=== PATIENT | male | born 1960 | race Two or more races ===

== ENCOUNTER 2021-06-02 13:27 | Emergency (ER) | payer BC, OTHER ==
[~2021-06-02] VITALS: Ht 157.5 cm; Wt 72.6 kg
--- NOTE | 2021-06-02 13:27 | NUR ---
PT BIB SELF C/O EPIGASTRIC PAIN/NAUSEA/VOMITING X 3 DAYS. PT IS AAOX3 [place] SPEAKING ONLY, NOT IN RESPIRATORY DISTRESS, V/S STABLE, KEPT RESTED AND COMFORTABLE. WILL CONTINUE TO MONITOR.
--- NOTE | 2021-06-02 13:42 | NUR ---
AT BEDSIDE FOR EVAL.
[2021-06-02] MEDS ORDERED: ONDANSETRON HCL/PF 4 MG/2 ML VIAL IVP ONE ×3 (14:00→16:30)
[2021-06-02] MEDS ORDERED: IV NS 0.9% 1,000 ML BAG IV ONE ×2 (14:00→14:30)
--- NOTE | 2021-06-02 14:00 | NUR ---
IV LINE ESTALBISHED BLOOD DRAWN AND SENT TO LAB.
[2021-06-02] MEDS ORDERED: ONDANSETRON HCL/PF 4 MG/2 ML VIAL ONE ×2 (14:07→16:16)
[2021-06-02 14:15] LABS: BASOPHILS % (AUTO) 0.6 % (0.0-2.0); EOSINOPHILS % (AUTO) 1.5 % (0.0-6.0); HEMATOCRIT 41 % (39-51); HEMOGLOBIN 13.9 g/dL (13.5-17.5); LYMPHOCYTES # (AUTO) 1.7 K/uL (0.8-4.8); LYMPHOCYTES % (AUTO) 25.5 % (20.0-44.0); MEAN CORPUSCULAR HGB CONC 34 g/dl (31.0-36.0); MEAN CORPUSCULAR VOLUME 95 fL (80-96); MONOCYTES # (AUTO) 0.5 K/uL (0.1-1.30); MONOCYTES % (AUTO) 7.8 % (2.0-12.0); NEUTROPHILS # (AUTO) 4.4 K/uL (1.8-8.9); NEUTROPHILS % (AUTO) 64.6 % (43.0-81.0); PLATELET COUNT (AUTO) 228 K/uL (150-450); RED BLOOD CELL COUNT(AUTO) 4.28 MIL/uL (4.5-6.0); WHITE BLOOD COUNT (AUTO) 6.8 K/uL (4.3-11.0)
[2021-06-02 16:05] LABS: ALBUMIN 3.3 g/dL (3.4-5.0); BILIRUBIN,DIRECT 0.1 mg/dL (0.0-0.2); BILIRUBIN,TOTAL 0.2 mg/dL (0.2-1.0); CALCIUM, SERUM 7.4 mg/dL (8.5-10.1); CREATININE 0.9 mg/dL (0.6-1.3); POTASSIUM 4.5 mmol/L (3.5-5.1); TOTAL PROTEIN, SERUM 6.5 g/dL (6.4-8.2)
[2021-06-02] MEDS ORDERED: FAMOTIDINE/PF INJ 20 MG/2 ML VIAL IV ONE ×2 (16:16→16:30)
[2021-06-02] MEDS ORDERED: MAG HYDROX/AL HYDROX/SIMETH 30 ML UDC PO ONE (16:30)
[2021-06-02] MEDS ORDERED: OMEP40CA21 PO (16:35)
[2021-06-02] MEDS ORDERED: ONDA4TAB5 PO (16:35)
[2021-06-02] MEDS ORDERED: LORA-259 PO (16:35)
[2021-06-02] MEDS ORDERED: MAG HYDROX/AL HYDROX/SIMETH 30 ML UDC ONE (16:40)
[2021-06-02 16:50] VITALS: BP 129/71
--- NOTE | 2021-06-02 16:50 | NUR ---
IV removed. Catheter intact and site benign. Pressure and 4x4 applied to site. No bleeding noted. Patient discharged to home in stable condition. Written and verbal after care instructions given. Patient verbalizes understanding of instruction.
== END 2021-06-02 16:51 | disposition home or self-care (01) ==
LOC: ER 13:28
DX: K29.70 Gastritis, unspecified, without bleeding (principal); I10 Essential (primary) hypertension; E11.9 Type 2 diabetes mellitus without complications; Z79.899 Other long term (current) drug therapy
CPT/HCPCS: 36415; 80048; 80076; 83690; 85025; 96361; 96374; 96375; 96376; 99284; J2405 ×2; J3490; J7030

== ENCOUNTER 2021-07-02 13:13 | Emergency (ER) | payer BC, OTHER ==
[~2021-07-02] VITALS: Ht 154.9 cm; Wt 72.6 kg
[~2021-07-02 13:13] MED LIST: LORA-259 PO; OMEP40CA21 PO; ONDA4TAB5 PO
--- NOTE | 2021-07-02 13:13 | NUR ---
PT ON MONITOR. VITALS ARE STABLE
--- NOTE | 2021-07-02 13:13 | NUR ---
BIB SELF C/O EPIGASTRIC PAIN X 1 WEEK. ADMITS N/V, HEADACHE, CONSTIPATION FOR 2 DAYS. A&OX4. AMBULATORY. BREATHING EVEN AND UNLABORED. PULSES 2+ BILATERALLY. ABDOMINAL DISTENTION. LAST BM TODAY. SKIN IS WARM AND DRY.
--- NOTE | 2021-07-02 13:54 | NUR ---
INSURANCE PROCESSING CLERK AD BEDSIDE
[2021-07-02] MEDS ORDERED: FAMOTIDINE/PF INJ 20 MG/2 ML VIAL IV ONE ×2 (14:00→14:13)
[2021-07-02] MEDS ORDERED: IV NS 0.9% 1,000 ML BAG IV ONE ×3 (14:00→21:30)
[2021-07-02] MEDS ORDERED: ONDANSETRON HCL/PF 4 MG/2 ML VIAL IVP ONE (14:00)
--- NOTE | 2021-07-02 14:05 | NUR ---
URINE SAMPLE OBTAINED AND SENT TO LAB
[2021-07-02] MEDS ORDERED: ONDANSETRON HCL/PF 4 MG/2 ML VIAL ONE ×2 (14:13→19:34)
[2021-07-02 14:19] LABS: BASOPHILS % (AUTO) 0.3 % (0.0-2.0); EOSINOPHILS % (AUTO) 1.9 % (0.0-6.0); HEMATOCRIT 38 % (39-51); HEMOGLOBIN 12.9 g/dL (13.5-17.5); LYMPHOCYTES # (AUTO) 1.8 K/uL (0.8-4.8); MEAN CORPUSCULAR HGB CONC 34 g/dl (31.0-36.0); MEAN CORPUSCULAR VOLUME 94 fL (80-96); MONOCYTES # (AUTO) 0.5 K/uL (0.1-1.30); MONOCYTES % (AUTO) 6.5 % (2.0-12.0); NEUTROPHILS # (AUTO) 4.6 K/uL (1.8-8.9); NEUTROPHILS % (AUTO) 65.3 % (43.0-81.0); PLATELET COUNT (AUTO) 216 K/uL (150-450); RED BLOOD CELL COUNT(AUTO) 3.99 MIL/uL (4.5-6.0); WHITE BLOOD COUNT (AUTO) 7.1 K/uL (4.3-11.0)
--- NOTE | 2021-07-02 14:42 | NUR ---
Fluids are running. pt tolerating well
[2021-07-02 14:52] LABS: ALANINE AMINOTRANSFERASE 22 U/L (12-78); ALBUMIN 3.6 g/dL (3.4-5.0); ALKALINE PHOSPHATASE 54 U/L (46-116); ASPARTATE AMINOTRANSFERASE 11 U/L (15-37); BILIRUBIN,DIRECT 0.1 mg/dL (0.0-0.2); BILIRUBIN,TOTAL 0.2 mg/dL (0.2-1.0); CALCIUM, SERUM 8.1 mg/dL (8.5-10.1); CARBON DIOXIDE 20 mmol/L (21-32); CHLORIDE 100 mmol/L (98-107); GLUCOSE 322 mg/dL (74-106); LIPASE 195 U/L (73-393); POTASSIUM 4.4 mmol/L (3.5-5.1); SODIUM SERUM 133 mmol/L (136-145); TOTAL PROTEIN, SERUM 7.1 g/dL (6.4-8.2); UREA NITROGEN, BLOOD 12 mg/dL (7-18)
--- NOTE | 2021-07-02 16:32 | NUR ---
piv r ac,20g,dislodged, catheter intact,pressure dressing applied
[2021-07-02 17:29] LABS: BILIRUBIN,URINE NEGATIVE (NEGATIVE); COLOR,URINE YELLOW (YELLOW); LEUKOCYTE ESTERASE ,URINE NEGATIVE (NEGATIVE); NITRITE, URINE NEGATIVE (NEGATIVE); PROTEIN,URINE NEGATIVE (NEGATIVE); UGLUCOSE 100 MG/DL mg/dL (NEGATIVE); UROBILINOGEN,URINE 0.2 EU/dL (0.2)
[2021-07-02 18:59] LABS: CALCIUM, SERUM 8.4 mg/dL (8.5-10.1); CREATININE 0.8 mg/dL (0.6-1.3); POTASSIUM 4.4 mmol/L (3.5-5.1)
[2021-07-02] MEDS ORDERED: ONDANSETRON HCL/PF 4 MG/2 ML VIAL IV ONE (19:30)
[2021-07-02] MEDS ORDERED: IV NS 0.9% 250 ML IV ONE (19:40)
[2021-07-02] MEDS ORDERED: IOHEXOL-300 100 ML VIAL IV ONE (19:40)
--- NOTE | 2021-07-02 19:45 | NUR ---
taken to radiology
--- NOTE | 2021-07-02 19:52 | NUR ---
LACTIC ACID 2.6
--- NOTE | 2021-07-02 21:05 | NUR ---
LACTIC 2.2 PER LAB
[2021-07-02] MEDS ORDERED: IV LR 1000 ML 1,000 ML IV ONE (22:00)
[2021-07-02 22:32] LABS: CALCIUM, SERUM 8.5 mg/dL (8.5-10.1); POTASSIUM 5.1 mmol/L (3.5-5.1)
[2021-07-02] MEDS ORDERED: ONDA4TAB5 PO (22:50)
--- NOTE | 2021-07-02 22:54 | NUR ---
Patient discharged to home in stable condition. Written and verbal after care instructions given. Patient verbalizes understanding of instruction. IV removed. Catheter intact and site benign. Pressure and 4x4 applied to site. No bleeding noted. Pt ambulatory with a steady gait
[2021-07-02 23:04] VITALS: BP 118/70
== END 2021-07-02 22:49 | disposition home or self-care (01) ==
LOC: ER 13:19
DX: E86.0 Dehydration (principal); R11.2 Nausea with vomiting, unspecified; E11.65 Type 2 diabetes mellitus with hyperglycemia; E87.2 Acidosis; Z20.822 Contact with and (suspected) exposure to COVID-19; Z79.84 Long term (current) use of oral hypoglycemic drugs; I10 Essential (primary) hypertension; E78.5 Hyperlipidemia, unspecified; Z87.19 Personal history of other diseases of the digestive system
CPT/HCPCS: 36415; 70450; 71045; 74177; 80048 ×3; 80076; 81003; 82803; 82962; 83605 ×2; 83690; 84484 ×2; 85025; 87081; 87426; 93005; 96361; 96374; 96375; 96376; 99285; C9803; J2405 ×2; J3490; J7030 ×3; J7050; J7120 ×2; Q9967; J7040

== ENCOUNTER 2021-12-24 12:48 | Emergency (ER) | payer BC, OTHER ==
[~2021-12-24] VITALS: Ht 162.6 cm; Wt 81.2 kg
[2021-12-24] MEDS ORDERED: LIDOCAINE VISCOUS 2% UD 15 ML UDC MM ONE (13:00)
[2021-12-24] MEDS ORDERED: IV NS 0.9% 1,000 ML IV ONE (13:00)
[2021-12-24] MEDS ORDERED: ONDANSETRON HCL/PF - ER 4 MG/2 ML VIAL IV ONE (13:00)
[2021-12-24] MEDS ORDERED: MAG HYDROX/AL HYDROX/SIMETH 30 ML UDC PO ONE (13:00)
[2021-12-24] MEDS ORDERED: ONDANSETRON HCL/PF 4 MG/2 ML VIAL ONE (13:06)
[2021-12-24] MEDS ORDERED: LIDOCAINE VISCOUS 2% UD 15 ML UDC ONE (13:06)
[2021-12-24] MEDS ORDERED: MAG HYDROX/AL HYDROX/SIMETH 30 ML UDC ONE (13:06)
[2021-12-24 13:30] LABS: BASOPHILS % (AUTO) 0.6 % (0.0-2.0); EOSINOPHILS % (AUTO) 1.9 % (0.0-6.0); HEMATOCRIT 40 % (39-51); HEMOGLOBIN 13.8 g/dL (13.5-17.5); LYMPHOCYTES # (AUTO) 1.6 K/uL (0.8-4.8); LYMPHOCYTES % (AUTO) 24.2 % (20.0-44.0); MEAN CORPUSCULAR HGB CONC 35 g/dl (31.0-36.0); MEAN CORPUSCULAR VOLUME 93 fL (80-96); MONOCYTES # (AUTO) 0.5 K/uL (0.1-1.30); MONOCYTES % (AUTO) 7.6 % (2.0-12.0); NEUTROPHILS # (AUTO) 4.3 K/uL (1.8-8.9); NEUTROPHILS % (AUTO) 65.7 % (43.0-81.0); PLATELET COUNT (AUTO) 210 K/uL (150-450); RED BLOOD CELL COUNT(AUTO) 4.28 MIL/uL (4.5-6.0); WHITE BLOOD COUNT (AUTO) 6.5 K/uL (4.3-11.0)
[2021-12-24 13:38] LABS: CALCIUM, SERUM 8.3 mg/dL (8.5-10.1); CREATININE 1.1 mg/dL (0.6-1.3); POTASSIUM 4.9 mmol/L (3.5-5.1)
[2021-12-24 13:44] LABS: ALBUMIN 3.8 g/dL (3.4-5.0); BILIRUBIN,DIRECT 0.1 mg/dL (0.0-0.2); BILIRUBIN,TOTAL 0.3 mg/dL (0.2-1.0); TOTAL PROTEIN, SERUM 7.5 g/dL (6.4-8.2)
[2021-12-24] MEDS ORDERED: PANT20TA2 PO (13:52)
[2021-12-24] MEDS ORDERED: ONDA4TAB11 PO (13:52)
[2021-12-24 14:41] VITALS: BP 140/79
== END 2021-12-24 14:42 | disposition home or self-care (01) ==
LOC: ER 12:55
DX: K29.70 Gastritis, unspecified, without bleeding (principal); I10 Essential (primary) hypertension; E11.9 Type 2 diabetes mellitus without complications; Z87.19 Personal history of other diseases of the digestive system; Z85.46 Personal history of malignant neoplasm of prostate; Z79.899 Other long term (current) drug therapy
CPT/HCPCS: 36415; 80048; 80076; 83690; 85025; 96361; 96374; 99283; J2405; J7030

== ENCOUNTER 2024-09-07 10:16 | Emergency (ER) | payer BC, MEDICAID ==
[~2024-09-07] VITALS: Ht 160 cm; Wt 72.6 kg
[~2024-09-07 10:16] MED LIST changes: +ONDA4TAB11 PO; +PANT20TA2 PO
[2024-09-07 11:04] LABS: BASOPHILS % (AUTO) 0.5 % (0.0-2.0); EOSINOPHILS % (AUTO) 0.1 % (0.0-6.0); HEMATOCRIT 42 % (39-51); HEMOGLOBIN 14.2 g/dL (13.5-17.5); LYMPHOCYTES # (AUTO) 0.4 K/uL (0.8-4.8); LYMPHOCYTES % (AUTO) 7.2 % (20.0-44.0); MEAN CORPUSCULAR HEMOGLOBIN 34 PG (26.0-33.0); MEAN CORPUSCULAR HGB CONC 34 g/dl (31.0-36.0); MEAN CORPUSCULAR VOLUME 98 fL (80-96); MONOCYTES # (AUTO) 0.7 K/uL (0.1-1.30); MONOCYTES % (AUTO) 13.9 % (2.0-12.0); NEUTROPHILS # (AUTO) 4.1 K/uL (1.8-8.9); NEUTROPHILS % (AUTO) 78.3 % (43.0-81.0); PLATELET COUNT (AUTO) 181 K/uL (150-450); RED BLOOD CELL COUNT(AUTO) 4.24 MIL/uL (4.5-6.0); RED CELL DISTRIBUTION WIDTH 13.2 % (11.5-15.0); WHITE BLOOD COUNT (AUTO) 5.2 K/uL (4.3-11.0)
[2024-09-07 11:41] LABS: CALCIUM, SERUM 8.4 mg/dL (8.5-10.1); CREATININE 1.2 mg/dL (0.6-1.3); POTASSIUM 4.1 mmol/L (3.5-5.1)
[2024-09-07] MEDS: IV NS 0.9% 1,000 ML BAG IV ONE (11:55)
[2024-09-07] MEDS ORDERED: ONDANSETRON HCL/PF 4 MG/2 ML VIAL ONE (12:07)
[2024-09-07] MEDS: ONDANSETRON HCL/PF 4 MG/2 ML VIAL IV ONE (12:26)
[2024-09-07] MEDS ORDERED: INSULIN REGULAR, HUMAN 100 UNIT/ML 10 ML VIAL ONE (12:27)
[2024-09-07] MEDS: INSULIN REGULAR, HUMAN 100 UNIT/ML 10 ML VIAL IV ONE (12:34)
[2024-09-07] MEDS ORDERED: SUCRALFATE 1 G/10 ML UDC ONE (13:56)
[2024-09-07] MEDS ORDERED: PANTOPRAZOLE 40 MG VIAL ONE (13:56)
[2024-09-07] MEDS ORDERED: FAMOTIDINE/PF INJ 20 MG/2 ML VIAL IV ONE ×2 (13:57→14:00)
[2024-09-07] MEDS ORDERED: PANTOPRAZOLE 40 MG VIAL IV ONE (14:00)
[2024-09-07] MEDS ORDERED: SUCRALFATE 1 G/10 ML UDC PO ONE (14:00)
[2024-09-07 14:24] LABS: VBG BASE EXCESS -3.2 mmol/L (-2.0-3.0); VBG COHb 2.1 % (0.5-1.5); VBG HCO3 19.9 mmol/L (22.0-29.0); VBG MetHb 0.2 % (0.5-1.5); VBG O2Hb 91.8 % (0-79); VBG PH 7.425 (7.320-7.430); VBG PO2 71.7 mmHg (23.0-48.0)
[2024-09-07] MEDS ORDERED: SUCR1ORA6 PO (14:51)
[2024-09-07] MEDS ORDERED: PANT40TA49 PO (14:51)
[2024-09-07] MEDS ORDERED: FAMO20TA80 PO (14:51)
[2024-09-07 15:13] VITALS: BP 138/78; TEMP 97.9; O2SAT 98
== END 2024-09-07 15:14 | disposition home or self-care (01) ==
LOC: ER 10:25
DX: K52.9 Noninfective gastroenteritis and colitis, unspecified (principal); R11.2 Nausea with vomiting, unspecified; I10 Essential (primary) hypertension; E11.9 Type 2 diabetes mellitus without complications; E78.5 Hyperlipidemia, unspecified; Z87.19 Personal history of other diseases of the digestive system; Z79.899 Other long term (current) drug therapy
CPT/HCPCS: 99285; 96374; 71045; 96361; 96375; 93005; 82803; 84145; 85025; 80048; 87040 ×2; 82010; 36415; 84484; 82962 ×2; J1815; J3490; J2405; J7030; J2470

== ENCOUNTER 2025-01-13 13:34 | Emergency (ER) | payer BC, MEDICAID ==
[~2025-01-13] VITALS: Ht 160 cm; Wt 72.6 kg
[~2025-01-13 13:34] MED LIST changes: +FAMO20TA80 PO; +PANT40TA49 PO; +SUCR1ORA6 PO
[2025-01-13] MEDS ORDERED: ONDANSETRON HCL/PF 4 MG/2 ML VIAL ONE (14:46)
[2025-01-13] MEDS ORDERED: diphenhydrAMINE HCL 50 MG/ML VIAL ONE (14:46)
[2025-01-13 14:51] LABS: BASOPHILS % (AUTO) 0.4 % (0.0-2.0); EOSINOPHILS # (AUTO) 0.2 K/uL (0.0-0.7); EOSINOPHILS % (AUTO) 4.3 % (0.0-6.0); HEMATOCRIT 37 % (39-51); HEMOGLOBIN 13.1 g/dL (13.5-17.5); LYMPHOCYTES # (AUTO) 1.3 K/uL (0.8-4.8); LYMPHOCYTES % (AUTO) 22.3 % (20.0-44.0); MEAN CORPUSCULAR HEMOGLOBIN 34 PG (26.0-33.0); MEAN CORPUSCULAR HGB CONC 35 g/dl (31.0-36.0); MEAN CORPUSCULAR VOLUME 97 fL (80-96); MONOCYTES # (AUTO) 0.5 K/uL (0.1-1.30); MONOCYTES % (AUTO) 8.6 % (2.0-12.0); NEUTROPHILS # (AUTO) 3.7 K/uL (1.8-8.9); NEUTROPHILS % (AUTO) 64.4 % (43.0-81.0); PLATELET COUNT (AUTO) 222 K/uL (150-450); RED BLOOD CELL COUNT(AUTO) 3.86 MIL/uL (4.5-6.0); RED CELL DISTRIBUTION WIDTH 13.8 % (11.5-15.0); WHITE BLOOD COUNT (AUTO) 5.8 K/uL (4.3-11.0)
[2025-01-13] MEDS: ONDANSETRON HCL/PF 4 MG/2 ML VIAL IVP ONE (14:53)
[2025-01-13] MEDS: diphenhydrAMINE HCL 50 MG/ML VIAL IV ONE (14:53)
[2025-01-13] MEDS: IV NS 0.9% 1,000 ML BAG IV ONE (14:53)
[2025-01-13 15:09] LABS: CALCIUM, SERUM 8.8 mg/dL (8.5-10.1); CREATININE 1.1 mg/dL (0.6-1.3); POTASSIUM 4.4 mmol/L (3.5-5.1)
[2025-01-13 15:25] LABS: ALBUMIN 3.5 g/dL (3.4-5.0); BILIRUBIN,DIRECT 0.1 mg/dL (0.0-0.2); BILIRUBIN,TOTAL 0.3 mg/dL (0.2-1.0); TOTAL PROTEIN, SERUM 7.4 g/dL (6.4-8.2)
[2025-01-13 15:33] LABS: INR 0.93 (0.91-1.10); PARTIAL THROMBOPLASTIN TIME 24.6 SEC (24.3-34.3); PROTHROMBIN TIME 9.9 SECS (9.2-11.1)
[2025-01-13 16:12] LABS: ERYTHROCYTE SEDIMENTATION RATE 12 MM/HR (0-20)
[2025-01-13] MEDS ORDERED: MECL-159 PO (16:27)
[2025-01-13 16:41] VITALS: BP 132/70; TEMP 98; O2SAT 98
== END 2025-01-13 16:41 | disposition home or self-care (01) ==
LOC: ER 13:38
DX: R42 Dizziness and giddiness (principal); I10 Essential (primary) hypertension; E11.9 Type 2 diabetes mellitus without complications; Z79.899 Other long term (current) drug therapy; Z87.19 Personal history of other diseases of the digestive system; Z86.2 Personal history of diseases of the blood and blood-forming organs and certain disorders involving the immune mechanism
CPT/HCPCS: 99285; 96374; 70450; 71045; 96361; 96375; 93005; 85025; 80048; 80076; 85652; 36415; 85730; J1200; J2405

== ENCOUNTER 2025-04-05 12:12 | Emergency (ER) | payer BC, MEDICAID ==
[~2025-04-05] VITALS: Ht 157.5 cm; Wt 72.6 kg
[~2025-04-05 12:12] MED LIST changes: +MECL-159 PO
[2025-04-05] MEDS ORDERED: ONDANSETRON HCL/PF 4 MG/2 ML VIAL ONE (12:36)
[2025-04-05] MEDS ORDERED: FAMOTIDINE/PF INJ 20 MG/2 ML VIAL IV ONE (12:37)
[2025-04-05] MEDS: IV NS 0.9% 1,000 ML BAG IV ONE (12:45)
[2025-04-05] MEDS: FAMOTIDINE/PF INJ 20 MG/2 ML VIAL IV ONE (12:50)
[2025-04-05] MEDS: ONDANSETRON HCL/PF 4 MG/2 ML VIAL IVP ONE (12:54)
[2025-04-05 12:55] LABS: PLATELET COUNT (AUTO) 236 K/uL (150-450); RED BLOOD CELL COUNT(AUTO) 4.26 MIL/uL (4.5-6.0); RED CELL DISTRIBUTION WIDTH 13.4 % (11.5-15.0); WHITE BLOOD COUNT (AUTO) 5.9 K/uL (4.3-11.0)
[2025-04-05 13:05] LABS: CALCIUM, SERUM 8.8 mg/dL (8.5-10.1); CREATININE 1.0 mg/dL (0.6-1.3); SODIUM SERUM 132 mmol/L (136-145); UREA NITROGEN, BLOOD 16 mg/dL (7-18)
[2025-04-05 13:11] LABS: ASPARTATE AMINOTRANSFERASE 11 U/L (15-37); TOTAL PROTEIN, SERUM 7.7 g/dL (6.4-8.2)
[2025-04-05] MEDS ORDERED: IOHEXOL-300 100 ML VIAL IV ONE (13:23)
[2025-04-05] MEDS ORDERED: IV NS 0.9% 250 ML IV ONE (13:23)
[2025-04-05] MEDS ORDERED: LIDOCAINE VISCOUS 2% UD 15 ML UDC ONE (14:00)
[2025-04-05] MEDS ORDERED: MAG HYDROX/AL HYDROX/SIMETH 30 ML UDC ONE (14:00)
[2025-04-05] MEDS: MAG HYDROX/AL HYDROX/SIMETH 30 ML UDC PO ONE (14:05)
[2025-04-05] MEDS: LIDOCAINE VISCOUS 2% UD 15 ML UDC MM ONE (14:05)
[2025-04-05 15:02] VITALS: BP 101/69; TEMP 98.6; O2SAT 99
== END 2025-04-05 15:03 | disposition home or self-care (01) ==
LOC: ER 12:19
DX: R10.13 Epigastric pain (principal); R11.2 Nausea with vomiting, unspecified; R94.31 Abnormal electrocardiogram [ECG] [EKG]; E11.9 Type 2 diabetes mellitus without complications; I10 Essential (primary) hypertension; K40.90 Unilateral inguinal hernia, without obstruction or gangrene, not specified as recurrent; M16.11 Unilateral primary osteoarthritis, right hip; Z79.899 Other long term (current) drug therapy; Z87.19 Personal history of other diseases of the digestive system; Z87.438 Personal history of other diseases of male genital organs
CPT/HCPCS: 99285; 74177; 96374; 71045; 96361; 96375; 93005; 85025; 80048; 83690; 80076; 36415; 84484 ×2; J1308; J2405; J7030; J7050; A4223; Q9967

== ENCOUNTER 2025-05-07 10:40 | Emergency (ER) | payer BC, MEDICAID ==
[~2025-05-07] VITALS: Ht 165.1 cm; Wt 72.6 kg
[2025-05-07 10:46] VITALS: TEMP 97.8
[2025-05-07] MEDS ORDERED: ONDANSETRON HCL/PF 4 MG/2 ML VIAL ONE (11:02)
[2025-05-07] MEDS ORDERED: PANTOPRAZOLE 40 MG VIAL ONE (11:02)
[2025-05-07] MEDS: IV NS 0.9% 1,000 ML BAG IV ONE ×2 (11:10→12:00)
[2025-05-07] MEDS: ONDANSETRON HCL/PF 4 MG/2 ML VIAL IVP ONE (11:14)
[2025-05-07] MEDS: PANTOPRAZOLE 40 MG VIAL IV ONE (11:15)
[2025-05-07 11:17] LABS: PLATELET COUNT (AUTO) 235 K/uL (150-450); RED BLOOD CELL COUNT(AUTO) 4.22 MIL/uL (4.5-6.0); RED CELL DISTRIBUTION WIDTH 12.8 % (11.5-15.0); WHITE BLOOD COUNT (AUTO) 6.5 K/uL (4.3-11.0)
[2025-05-07 11:26] LABS: CALCIUM, SERUM 8.4 mg/dL (8.5-10.1); CREATININE 1.3 mg/dL (0.6-1.3); SODIUM SERUM 132.0 mmol/L (136-145); UREA NITROGEN, BLOOD 14.0 mg/dL (7-18)
[2025-05-07 11:33] LABS: ASPARTATE AMINOTRANSFERASE 17.0 U/L (15-37); TOTAL PROTEIN, SERUM 7.0 g/dL (6.4-8.2)
[2025-05-07 11:40] LABS: APPEARANCE,URINE CLEAR (CLEAR); BLOOD, URINE 2+ Ery/uL (NEGATIVE); LEUKOCYTE ESTERASE ,URINE TRACE (NEGATIVE); NITRITE, URINE NEGATIVE (NEGATIVE); UGLUCOSE 3+ mg/dL (NEGATIVE)
[2025-05-07 11:43] LABS: SQUAMOUS EPITHELIAL CELL,UR Moderate /HPF (None Seen)
[2025-05-07 11:44] LABS: ADD URINE CULTURE NO
[2025-05-07] MEDS ORDERED: ONDA4TAB5 PO (11:46)
[2025-05-07] MEDS ORDERED: PANT40TA49 PO (11:46)
[2025-05-07 13:07] VITALS: BP 135/78; O2SAT 96
== END 2025-05-07 13:08 | disposition home or self-care (01) ==
LOC: ER 10:45
DX: K85.90 Acute pancreatitis without necrosis or infection, unspecified (principal); R11.2 Nausea with vomiting, unspecified; E11.65 Type 2 diabetes mellitus with hyperglycemia; F10.10 Alcohol abuse, uncomplicated; I10 Essential (primary) hypertension; Z79.899 Other long term (current) drug therapy; Z87.19 Personal history of other diseases of the digestive system; Z87.438 Personal history of other diseases of male genital organs
CPT/HCPCS: 99284; 96374; 96361; 96375; 85025; 80048; 83690; 80076; 81001; 36415; 80320; J2405; J7030; J2470; G0480

== ENCOUNTER 2025-06-21 14:20 | Emergency (ER) | payer BC, MEDICAID ==
[~2025-06-21] VITALS: Ht 165.1 cm; Wt 70.8 kg
[2025-06-21] MEDS: PANTOPRAZOLE 40 MG VIAL IV ONE (15:00)
[2025-06-21] MEDS: ONDANSETRON HCL/PF 4 MG/2 ML VIAL IVP ONE (15:00)
[2025-06-21] MEDS ORDERED: PANTOPRAZOLE 40 MG VIAL ONE (15:00)
[2025-06-21] MEDS ORDERED: ONDANSETRON HCL/PF 4 MG/2 ML VIAL ONE (15:01)
[2025-06-21 15:04] LABS: PLATELET COUNT (AUTO) 228 K/uL (150-450); RED BLOOD CELL COUNT(AUTO) 4.06 MIL/uL (4.5-6.0); RED CELL DISTRIBUTION WIDTH 13.1 % (11.5-15.0); WHITE BLOOD COUNT (AUTO) 6.5 K/uL (4.3-11.0)
[2025-06-21 15:10] LABS: CALCIUM, SERUM 8.3 mg/dL (8.5-10.1); CREATININE 1.0 mg/dL (0.6-1.3); SODIUM SERUM 127.0 mmol/L (136-145); UREA NITROGEN, BLOOD 9.0 mg/dL (7-18)
[2025-06-21 15:16] LABS: ASPARTATE AMINOTRANSFERASE 22.0 U/L (15-37); TOTAL PROTEIN, SERUM 7.3 g/dL (6.4-8.2)
[2025-06-21 15:18] LABS: INR 0.93 (0.91-1.10)
[2025-06-21] MEDS: IV NS 0.9% 1,000 ML BAG IV ONE (16:00)
[2025-06-21 16:59] LABS: APPEARANCE,URINE CLEAR (CLEAR); BLOOD, URINE NEGATIVE Ery/uL (NEGATIVE); LEUKOCYTE ESTERASE ,URINE NEGATIVE (NEGATIVE); NITRITE, URINE NEGATIVE (NEGATIVE); UGLUCOSE TRACE mg/dL (NEGATIVE)
[2025-06-21] MEDS ORDERED: PANT20TA2 PO (17:04)
[2025-06-21] MEDS ORDERED: ONDA4TAB11 PO (17:04)
[2025-06-21 17:13] LABS: ADD URINE CULTURE NO; SQUAMOUS EPITHELIAL CELL,UR Few /HPF (None Seen)
[2025-06-21 17:29] VITALS: BP 141/65; TEMP 98.2; O2SAT 100
== END 2025-06-21 17:29 | disposition home or self-care (01) ==
LOC: ER 14:30
DX: K40.90 Unilateral inguinal hernia, without obstruction or gangrene, not specified as recurrent (principal); R11.2 Nausea with vomiting, unspecified; E11.65 Type 2 diabetes mellitus with hyperglycemia; E78.5 Hyperlipidemia, unspecified; I10 Essential (primary) hypertension; N40.1 Benign prostatic hyperplasia with lower urinary tract symptoms; Z87.19 Personal history of other diseases of the digestive system; Z79.899 Other long term (current) drug therapy
CPT/HCPCS: 99285; 74176; 96374; 71045; 96361; 96375; 93005; 85025; 80048; 83690; 80076; 81001; 36415; 85730; J2405; J7030; J2470

== ENCOUNTER 2025-08-14 09:38 | Emergency (ER) | payer BC, MEDICAID ==
[~2025-08-14] VITALS: Ht 165.1 cm; Wt 70.8 kg
[2025-08-14 09:49] VITALS: TEMP 98.5
[2025-08-14] MEDS ORDERED: MAG HYDROX/AL HYDROX/SIMETH 30 ML UDC ONE (10:09)
[2025-08-14] MEDS ORDERED: LIDOCAINE VISCOUS 2% UD 15 ML UDC ONE (10:09)
[2025-08-14] MEDS ORDERED: FAMOTIDINE/PF INJ 20 MG/2 ML VIAL IV ONE (10:09)
[2025-08-14] MEDS: LIDOCAINE VISCOUS 2% UD 15 ML UDC MM ONE (10:26)
[2025-08-14] MEDS: MAG HYDROX/AL HYDROX/SIMETH 30 ML UDC PO ONE (10:26)
[2025-08-14] MEDS: FAMOTIDINE/PF INJ 20 MG/2 ML VIAL IV ONE (10:26)
[2025-08-14] MEDS: IV NS 0.9% 500 ML BAG IV ONE (10:26)
[2025-08-14 10:34] LABS: PLATELET COUNT (AUTO) 223 K/uL (150-450); RED BLOOD CELL COUNT(AUTO) 4.52 MIL/uL (4.5-6.0); RED CELL DISTRIBUTION WIDTH 13.2 % (11.5-15.0); WHITE BLOOD COUNT (AUTO) 5.9 K/uL (4.3-11.0)
[2025-08-14 11:10] LABS: CALCIUM, SERUM 8.3 mg/dL (8.5-10.1); CREATININE 1.5 mg/dL (0.6-1.3); SODIUM SERUM 129.0 mmol/L (136-145); UREA NITROGEN, BLOOD 25.0 mg/dL (7-18)
[2025-08-14] MEDS ORDERED: INSULIN REGULAR, HUMAN 100 UNIT/ML 10 ML VIAL ONE (11:33)
[2025-08-14] MEDS: INSULIN REGULAR, HUMAN 100 UNIT/ML 10 ML VIAL SQ ONE (11:38)
[2025-08-14 11:48] LABS: TOTAL PROTEIN, SERUM 7.7 g/dL (6.4-8.2)
[2025-08-14 11:54] LABS: ASPARTATE AMINOTRANSFERASE 32.0 U/L (15-37)
[2025-08-14] MEDS ORDERED: OMEP20TA20 PO (12:08)
[2025-08-14 12:22] VITALS: BP 121/70; O2SAT 97
== END 2025-08-14 12:29 | disposition home or self-care (01) ==
LOC: ER 09:43
DX: K29.70 Gastritis, unspecified, without bleeding (principal); E11.65 Type 2 diabetes mellitus with hyperglycemia; I10 Essential (primary) hypertension; Z79.899 Other long term (current) drug therapy; Z87.19 Personal history of other diseases of the digestive system
CPT/HCPCS: 99285; 74176; 96374; 76700; 96361; 93005; 85025; 80048; 83690; 80076; 36415; 96372; J1815; J1308; J7040